=== PATIENT | male | born 1980 | race Caucasian/White ===

== ENCOUNTER 2016-02-18 19:11 | Inpatient (IN) | payer OTHER ==
[~2016-02-18] VITALS: Ht 182.9 cm; Wt 140.9 kg
--- NOTE | ~2016-02-18 | EKG ---
[address] [place] [address] ELECTROCARDIOGRAM REPORT Name: KEAGANDARLINE TONY Room #: 311-P [facility] IN M.R.#: [id number] Admission: 02/18/16 Attend Phys: Mana Palafox MD Discharge: 02/20/16 Date of : 76 Report #: [id number] THIS REPORT FOR: //name// [facility] ED Test Date: 2016-02-18 Test Time: 19:12:59 Pat Name: DARLINE BOOGIE Department: Room: [facility] Gender: M Steward/Stewardess Dining Room: ANTWAN : 1980 Requested By: Lowell Gamino Order Number: [id number] MD: Trey Carter Measurements Intervals [place] Rate: 73 P: ME: QRS: 38 QRSD: 124 T: 25 QT: 413 QTc: 456 Interpretive Statements Normal sinus rhythm Nonspecific T wave abnormality Baseline wander in lead(s) V4,V6 No previous ECG available for comparison Electronically Signed On 02-21-2016 8:26:13 LOOM SETTER by Trey Carter [email or web address] <ELECTRONICALLY SIGNED> By: Trey Carter MD, [facility] 02/21/16 0826 11 11 Trey Carter MD, [facility] /EPI
[~2016-02-18 19:11] MED LIST: FLOMAX PO; NOHOMEMEDICATIONS; PERCOCET 5-3251 EACH PO; ZOFRAN ODT4 MG PO
[2016-02-18 19:12] VITALS: BP 122/70
[2016-02-18] MEDS ORDERED: LANSOPRAZOLE30 MG PO (19:18)
[2016-02-18 19:40] LABS: HEMATOCRIT 47.4 % (42.0-52.0); HEMOGLOBIN 16.9 gm/dL (14.0-18.0); MANUAL DIFF YES; MCH 29.1 pg (26.0-34.0); MCHC 35.5 % (28.0-37.0); PLATELET COUNT 280 thou/uL (150-400); RBC 5.78 mil/uL (4.50-6.00); RDW 13.2 % (10.5-14.5); WBC 21.3 thou/uL (4.0-11.0)
[2016-02-18 19:44] LABS: CALCIUM 9.4 mg/dL (8.5-10.1); CREATININE 1.2 mg/dL (0.6-1.3); POTASSIUM 3.7 mmol/L (3.5-5.1)
[2016-02-18 19:50] LABS: ALBUMIN 4.3 g/dL (3.4-5.0); TOTAL BILIRUBIN 1.6 mg/dL (<0.1-1.0); TOTAL PROTEIN 8.2 g/dL (6.4-8.2)
[2016-02-18 20:01] LABS: PLATELET ESTIMATE NORMAL; TOTAL CELL COUNT 100
[2016-02-18 21:38] LABS: URINE BILIRUBIN NEGATIVE (Negative); URINE BLOOD NEGATIVE (Negative); URINE COLOR YELLOW; URINE GLUCOSE-RANDOM* NEGATIVE (Negative); URINE KETONES 1+ (Negative); URINE NITRITE NEGATIVE (Negative); URINE PROTEIN (DIPSTICK) 1+ (Negative); URINE UROBILINOGEN 0.2 E.U./dl (0.2-1.0)
[2016-02-18 21:50] LABS: CASTS None Seen /LPF (None Seen); SQUAMOUS None Seen /LPF (0-3); URINE WBC None Seen /HPF (0-5)
[2016-02-18 21:51] LABS: BACTERIA None Seen /HPF (None Seen); CRYSTALS None Seen /LPF (None Seen); URINE RBC None Seen /HPF (0-2)
[2016-02-18 22:29] VITALS: BP 117/81
[2016-02-18 22:50] VITALS: BP 130/79
[2016-02-19 04:00] VITALS: BP 128/74
[2016-02-19 04:02] LABS: HEMATOCRIT 44.8 % (42.0-52.0); MCH 27.9 pg (26.0-34.0); MCHC 33.4 % (28.0-37.0); MCV 83.4 fL (80.0-100.0); RBC 5.37 mil/uL (4.50-6.00); RDW 13.7 % (10.5-14.5); WBC 14.9 thou/uL (4.0-11.0)
[2016-02-19 05:27] LABS: CALCIUM 8.9 mg/dL (8.5-10.1); CREATININE 1.2 mg/dL (0.6-1.3); MAGNESIUM 1.8 mg/dL (1.8-2.4); POTASSIUM 3.7 mmol/L (3.5-5.1)
[2016-02-19 08:00] VITALS: BP 115/70
[2016-02-19 17:30] VITALS: BP 123/84
[2016-02-19 20:20] VITALS: BP 125/85
[2016-02-19 21:05] LABS: GLYCOHEMOGLOBIN (HGB A1C) 5.9 % (4.8-5.6)
[2016-02-20 04:20] VITALS: BP 140/80
[2016-02-20 04:25] VITALS: BP 124/85; BP 135/81; BP 140/93
[2016-02-20 05:57] LABS: ABSOLUTE NEUTROPHILS 5.3 thou/uL (1.4-8.2); BASOPHILS 0.4 % (0.0-2.0); EOSINOPHILS 2.2 % (0.0-3.0); HEMATOCRIT 39.9 % (42.0-52.0); HEMOGLOBIN 13.6 gm/dL (14.0-18.0); LYMPHOCYTES 17.3 % (24.0-44.0); MCHC 34.2 % (28.0-37.0); MONOCYTES 10.3 % (1.0-8.0); PLATELET COUNT 213 thou/uL (150-400); POLYS 69.8 % (36.0-66.0); RBC 4.86 mil/uL (4.50-6.00); RDW 13.5 % (10.5-14.5); WBC 7.6 thou/uL (4.0-11.0)
[2016-02-20 07:03] LABS: MANUAL DIFF NO
[2016-02-20 08:45] VITALS: BP 122/84
[2016-02-20 12:42] VITALS: BP 122/84
== END 2016-02-20 13:15 | disposition home or self-care (01) | DRG 908 ==
LOC: ER 19:11 → 3N 21:36
PROVIDERS: Hospitalist; Nurse Practitioner Acute Care; Physician Assistant
PROC: 0WQ0XZZ Repair Head, External Approach (ICD-10-PCS; principal; 2016-02-18)
DX: S09.90XA Unspecified injury of head, initial encounter (principal); K56.7 Ileus, unspecified; S01.01XA Laceration without foreign body of scalp, initial encounter; A08.4 Viral intestinal infection, unspecified; R55 Syncope and collapse; D72.829 Elevated white blood cell count, unspecified; Z87.891 Personal history of nicotine dependence; Z98.62 Peripheral vascular angioplasty status; Z87.442 Personal history of urinary calculi; Z28.21 Immunization not carried out because of patient refusal; W22.8XXA Striking against or struck by other objects, initial encounter; Y93.89 Activity, other specified; Y92.89 Other specified places as the place of occurrence of the external cause; Y99.8 Other external cause status
CPT/HCPCS: 10795

== ENCOUNTER 2017-06-10 03:07 | Inpatient (IN) | payer OTHER ==
[~2017-06-10] VITALS: Ht 185.4 cm; Wt 142.9 kg
--- NOTE | ~2017-06-10 | EKG ---
[address] [address] ELECTROCARDIOGRAM REPORT Name: DARLINE BOOGIE Room #: 426-P ADM IN M.R.#: [id number] Admission: 06/10/17 Attend Phys: [place] Dobbins MD Discharge: Date of : 76 Report #: [id number] THIS REPORT FOR: //name// [facility] ED Test Date: 2017-06-10 Test Time: 05:53:00 Pat Name: DARLINE BOOGIE Department: Room: 426 Gender: M Heavy Machinery Assembler: [place] NO : 1980 Requested By: Kusum Rich Order Number: [id number] MD: Trey Carter Measurements Intervals [place] Rate: 99 P: 34 NE: 172 QRS: 32 QRSD: 117 T: -1 QT: 362 QTc: 465 Interpretive Statements Sinus rhythm Probable left atrial enlargement Nonspecific intraventricular conduction delay Compared to ECG 02/18/2016 19:12:59 No significant change was found Electronically Signed On 06-10-2017 8:53:05 CDT by Trey Carter [email or web address] <ELECTRONICALLY SIGNED> By: Trey Carter MD, [facility] 06/10/17 0853 [id number] 2 Trey Carter MD, [facility] /EPI
[~2017-06-10 03:07] MED LIST changes: +LANSOPRAZOLE30 MG PO
[2017-06-10 03:21] VITALS: BP 159/99
[2017-06-10 03:40] LABS: URINE BILIRUBIN NEGATIVE (Negative); URINE BLOOD TRACE (Negative); URINE CLARITY CLEAR; URINE COLOR YELLOW; URINE GLUCOSE-RANDOM* NEGATIVE (Negative); URINE KETONES NEGATIVE (Negative); URINE LEUKOCYTES NEGATIVE (Negative); URINE NITRITE NEGATIVE (Negative); URINE PROTEIN (DIPSTICK) NEGATIVE (Negative); URINE UROBILINOGEN 0.2 E.U./dl (0.2-1.0)
[2017-06-10 03:57] LABS: ABSOLUTE NEUTROPHILS 7.5 thou/uL (1.4-8.2); BASOPHILS 0.7 % (0.0-2.0); EOSINOPHILS 1.8 % (0.0-3.0); HEMATOCRIT 42.4 % (42.0-52.0); HEMOGLOBIN 14.7 gm/dL (14.0-18.0); LYMPHOCYTES 18.4 % (24.0-44.0); MCH 28.4 pg (26.0-34.0); MCHC 34.6 g/dL (28.0-37.0); MCV 82.3 fL (80.0-100.0); MONOCYTES 8.6 % (1.0-8.0); PLATELET COUNT 246 thou/uL (150-400); POLYS 70.5 % (36.0-66.0); RBC 5.16 mil/uL (4.50-6.00); RDW 13.4 % (10.5-14.5); WBC 10.6 thou/uL (4.0-11.0)
[2017-06-10] MEDS ORDERED: CENTRUM SILVER1 EAC2 PO (04:00)
[2017-06-10 04:05] LABS: POTASSIUM 3.3 mmol/L (3.5-5.1)
[2017-06-10 04:11] LABS: ALBUMIN 3.7 g/dL (3.4-5.0); DIRECT BILIRUBIN 0.2 mg/dL (<0.1-0.3); TOTAL PROTEIN 7.5 g/dL (6.4-8.2)
[2017-06-10 07:36] VITALS: BP 137/74
[2017-06-10 08:03] LABS: AMP/METHAMP Negative (Negative); BARBITURATES Negative (Negative); BENZODIAZEPINES Negative (Negative); COCAINE Negative (Negative); METHADONE Negative (Negative); OPIATES Negative (Negative); PCP Negative (Negative)
[2017-06-10 08:09] VITALS: BP 132/76
[2017-06-10 17:29] VITALS: BP 132/76
== END 2017-06-10 17:59 | disposition home or self-care (01) | DRG 194 ==
LOC: ER 03:07 → EROBS 05:45 → 4E 05:45
PROVIDERS: Emergency Medicine; Hospitalist
DX: R09.1 Pleurisy (principal); Z68.41 Body mass index [BMI] 40.0-44.9, adult; R10.9 Unspecified abdominal pain; E87.6 Hypokalemia; K76.0 Fatty (change of) liver, not elsewhere classified; E66.9 Obesity, unspecified; R61 Generalized hyperhidrosis; K21.9 Gastro-esophageal reflux disease without esophagitis; Z87.891 Personal history of nicotine dependence; Z87.442 Personal history of urinary calculi
CPT/HCPCS: 10183